=== PATIENT | female | born 1955 | race Caucasian/White ===

== ENCOUNTER 2017-06-11 06:46 | Inpatient (IN) ==
[~2017-06-11 06:46] MED LIST: ACETAMINOPHEN 500 MG TABLET PO ONE; DEXAMETHASONE 4 MG/ML INJECTION IVP ONE; FAMOTIDINE PB 20 MG/50 ML BAG IV ONE; LIDOCAINE 1% (10mg/ml) 2mL INJ PF SDV ID ONE; MELOXICAM 15 MG TABLET PO ONE; METOCLOPRAMIDE 10mg/2ml INJECTION IVP ONE; ONDANSETRON 4 MG/2 ML INJECTION IVP ONE; TRANEXAMIC ACID 1,000 MG in NS 100 ML IV ONE
[2017-06-11 07:00] VITALS: BMI 32.5
[2017-06-11] MEDS ORDERED: TRANEXAMIC ACID 1,000 MG in NS 100 ML IV ONE (07:00)
[2017-06-11] MEDS ORDERED: CEFAZOLIN 1 G INJECTION IVP ONE (07:07)
[2017-06-11] MEDS ORDERED: NOZIN NASAL SWAB NAS ONE ×2 (07:09→12:12)
--- NOTE | 2017-06-11 07:36 | Anesthesia Preoperative Report ---
Anesthesia Preoperative Record - Date and Time Date: 06/11/17 Preoperative Diagnosis: Lt TKA M17.12 NPO Since Date: 06/10/17 NPO Since Time: 00:00 Allergies/Adverse Reactions: Allergies Allergy/AdvReac Type Severity Reaction Status Date / Time hydromorphone [From Dilaudid] AdvReac Severe Nausea and Verified 06/11/17 07:14 Vomiting - Vital Signs Vital Signs: Temperature 98.0 F 06/11/17 07:00 Pulse Rate 81 06/11/17 07:00 Respiratory Rate 16 06/11/17 07:00 Blood Pressure 125/73 06/11/17 07:00 Pulse Oximetry 94 06/11/17 07:00 Height and Weight: Height 1.78 m Weight 102.8 kg Body Mass Index 32.5 - Medications Inpatient Medications: Current Medications Lactated Ringer's (Lactated Ringers) 1,000 mls @ 50 mls/hr IV .Q20H DAYANA Epinephrine HCl 0.25 mg/Bupivacaine HCl 30 ml/Morphine Sulfate 15 mg/Ketorolac Tromethamine 60 mg/Sodium Chloride 65.25 mls @ 1 mls/hr OPSITE INTRAOP ONE PRN Reason: Protocol Stop: 06/14/17 01:14 Sodium Chloride (Iv Flush) 10 - 80 ml IV PRN PRN PRN Reason: Flushing Home Medications: Home Medications Medication Instructions Recorded Confirmed Type Zyrtec (Cetirizine) 10 mg tablet 10 mg PO DAILY PRN tab 04/09/17 06/11/17 History levothyroxine 175 mcg tablet 175 mcg PO ACB 04/09/17 06/11/17 History lisinopril 20 mg tablet 20 mg PO DAILY 04/09/17 06/11/17 History Multivitamin [One Daily] 1 each PO DAILY 05/08/17 06/11/17 History Menopausal Supplement 1 tab PO DAILY 06/11/17 06/11/17 History Is Patient on Beta Nilda?: No - Medical History Respiratory: Reports: Tuberculosis (Pos TB test, CXR showed encapsulated, no treatment) DENIES: Sleep Apnea Cardiovascular: Reports: Hypertension Renal/Endocrine: Reports: Thyroid Disease Other History: Reports: Anesthesia Reactions (n/v) - Surgical History GI Surgery/Treatments: Reports: Cholecystectomy Musculoskeletal Surgery/Tx: Reports: Knee Arthroscopy Reproductive Surgery/Treatment: Reports: Hysterectomy, Other (Breast biopsy) Anesthesia Reactions: Nausea and Vomiting Hx Family Anesthesia Reaction: No History of Motion Sickness: No - Social History Smoking Status: Never smoker Hx Chewing Tobacco Use: No Second Hand Exposure: No Substance Use Type: does not use Alcohol Intake Frequency: does not drink - Physical Exam Respiratory Exam: Present: lungs clear Cardiovascular Exam: Present: regular rate and rhythm - Airway Assessment Mallampati Score: II TMD: 3 Fingerbreadths Neck Extension: fair Overall Assessment: no airway concerns - ASA ASA Score: 2 - Plan Anesthesia: General TIVA, General Inhalation Gases, Neuroaxial Peripheral Nerve Block: Saphenous-Left - Discussion Discussion: Discussed risks/options/alternatives of anesthesia and questions answered. Patient consents. Nursing pain assessment noted. Attestation Statement: Prior to the delivery of any anesthetic medication, I examined the patient, developed the plan, obtained the patient's consent and discussed the risk and benefits of the procedure with the patient/guardian. - Additional Information Seen by Anesthesia: Yes
[2017-06-11] MEDS: LR 1,000 ML IV SCH ×3 (07:40→10:20)
[2017-06-11] MEDS ORDERED: SCOPOLAMINE 1.5mg (delivers 1mg/24hrs) PATCH TD ONE (07:49)
[2017-06-11] MEDS ORDERED: FentaNYL 100 MCG/2 ML INJECTION ONE (07:50)
[2017-06-11] MEDS ORDERED: PROPOFOL 500 MG/50 ML VIAL IV ONE (07:50)
[2017-06-11] MEDS ORDERED: MIDAZOLAM 2mg/2ml INJECTION ONE (07:50)
[2017-06-11] MEDS ORDERED: EPINEPHrine PF 0.25 MG, BUPIVACAINE 0.25% PF 30 ML, MORPHINE SULFATE 15 MG, KETOROLAC I... OPSITE ONE (08:00)
[2017-06-11] MEDS ORDERED: VANCOMYCIN 1,000 MG INJECTION ONE (08:32)
[2017-06-11] MEDS ORDERED: SALINE FLUSH 10ml SYRINGE ONE (09:25)
[2017-06-11] MEDS ORDERED: PHENYLEPHRINE INJ 10 MG/ML VIAL IV ONE (09:25)
[2017-06-11] MEDS ORDERED: VANCOMYCIN 1,000 MG INJECTION IAR ONE (09:45)
[2017-06-11] MEDS ORDERED: ROPIVACAINE 0.5% (5mg/ml) 30ml INJ ONE (10:23)
--- NOTE | 2017-06-11 10:25 | Operative Note ---
- Procedure Preoperative Diagnosis: Left knee primary degenerative joint disease Postoperative Diagnosis: Same as preoperative diagnosis. Surgeon: Renu Cervantes MD Rail Car Repairman: Christopher Pappas Complications: None. Anesthesia: Spinal. Estimated Blood Loss: See Anesthesia Record. Fluids: Please see Anesthesia Record. Description of Procedure: Mrs. Leslie and her left knee were identified and marked in the preoperative holding area. She was brought back to the operating suite after a saphenous nerve block was placed in the preoperative holding area. Spinal anesthetic was administered and she was placed supine on the operating table. The left lower extremity was prepped and draped in my normal sterile fashion. Timeout was performed. The REMOTV robot was used during the surgery. She was fixed varus deformity with a flexion contracture. A standard anterior midline incision followed by medial parapatellar arthrotomy was performed. She complete loss in the medial compartment. Anterior fat pad and meniscus were removed. The patella was resurfaced to a size 32. Tibial and femoral arrays were placed both within the original incision. Checkpoints were then placed both in the femur and the tibia. The bone was then registered with the REMOTV robot. Osteophytes were removed and gaps were captured both 90 and 0 with correction. I performed a larger medial release removing them osteophytes as well but her deformity is still was not correctable. We're able to get her back to about 60 of varus in both flexion and extension and she had about 10 flexion contracture. We manipulated the components using the REMOTV software to obtain 18 mm gaps medially and 20 mm Laterally. The REMOTV robotic arm was then used to assist with the bone cuts. Posterior osteophytes and remaining meniscus were removed. Trial components were placed. We used a 5 femur and a 6 tibia with a 9 mm spacer. She tracked well and was well balanced throughout range of motion. The tibia was then stamped the proper rotation. All components were then press- fit into the place. The knee was ranged one more time to ensure good stability, balance and patellar tracking. 1 g of vancomycin powder was then placed into the knee joint. The capsulotomy was then closed with #1 Vicryl. I then left my veterinary assistant to close the subcutaneous tissue with 2-0 Vicryl. Running 4-0 Monocryl will be used in the subcuticular layer. Dermabond will be used on the skin followed by sterile dressing. After drapes are removed patient will be taken to recovery room under the care of anesthesia.
[2017-06-11] MEDS ORDERED: ONDANSETRON 4 MG/2 ML INJECTION IVP PRN ×2 (10:33→12:12)
[2017-06-11] MEDS ORDERED: FentaNYL 100 MCG/2 ML INJECTION IVP PRN (10:33)
--- NOTE | 2017-06-11 11:10 | Anesthesia Procedure Note ---
Peripheral Nerve Blockade - Procedure Physician: Miguel Cervantes MD Date: 06/11/17 Discussion: Discussed risks/options/alternatives of anesthesia and questions answered. Patient consents. Nursing pain assessment noted. Block Start: 11:02 Block Stop: 11:05 Blocked Employed: Adductor Canal, Single Injection Indication: Post-Operative Pain Approach: Left Side Confirmed Position: Supine Patient: Consent, Risks/Benefits Discussed, Informed, Post Block Act. Discussed IV Sedation: No (post op) Initial Vital Signs: Temperature 98.0 F 06/11/17 07:00 Temperature Source Oral 06/11/17 07:00 Pulse Rate 81 06/11/17 07:00 Respiratory Rate 16 06/11/17 07:00 Blood Pressure 125/73 06/11/17 07:00 Blood Pressure Mean 90 06/11/17 07:00 Blood Pressure Position Sitting 06/11/17 07:00 Pulse Oximetry 94 06/11/17 07:00 Oxygen Delivery Method 06/11/17 07:00 Post Vital Signs: Temperature 98.0 F 06/11/17 07:00 Pulse Rate 82 06/11/17 07:20 Respiratory Rate 16 06/11/17 07:00 Blood Pressure 125/73 06/11/17 07:00 Pulse Oximetry 94 06/11/17 07:00 Prep: Chlorhexadine/ETOH, Sterile Technique Ultrasound Used?: Yes - Nerve Simulator Needle Depth: 4 Muscle Response: No Paresthesia/Pain: None - Injectate Ropivacaine (%): 0.5 Ropivacaine (mL): 15 Was Epi 1:200,000 Used?: No Injection: Injection made incrementally with constant monitoring and aspiration every 5 ml
--- NOTE | 2017-06-11 11:38 | XRay Report ---
Indication: postoperative image PROCEDURE: XR knee LT 2V: Encounter: Initial Comparison: April 09, 2017 Findings: Postoperative changes of left total knee replacement are seen. There is expected postoperative subcutaneous gas. No evidence of hardware failure or acute fracture. No retained radiopaque surgical instruments or sponges. Overlying material causing artifact. Impression: New left total knee prosthesis without evidence of immediate complication. .
--- NOTE | 2017-06-11 12:01 | Anesthesia Postoperative Note ---
- Date and Time Date: 06/11/17 Time: 12:00 - Status Patient Participated in Evaluation: Patient Participated in Person Vital Signs: Temperature 97.2 F 06/11/17 11:55 Pulse Rate 65 06/11/17 11:55 Respiratory Rate 12 06/11/17 11:55 Blood Pressure 128/60 06/11/17 11:55 Pulse Oximetry 98 06/11/17 11:55 Respiratory Function: Airway Patent, Regular Respirations Cardiovascular Function: Regular Pulse Mental Status: Alert and Oriented Pain Intensity: 3 Hydration: IV Infusing Complications During Recover: None Apparent Post Anesthesia Care Notes: moves feet without problems - Follow-Up Instructions Instructions: Per Surgeon
[2017-06-11] MEDS ORDERED: DiphenhydrAMINE 25 MG CAPSULE PO PRN (12:12)
[2017-06-11] MEDS ORDERED: DiphenhydrAMINE 50 MG/ML INJECTION IVP PRN (12:12)
[2017-06-11] MEDS ORDERED: LORazepam 1 MG TABLET PO PRN (12:12)
[2017-06-11] MEDS ORDERED: CETIRIZINE 10 MG TABLET PO PRN (12:12)
[2017-06-11] MEDS: NS 1,000 ML IV SCH (12:15)
[2017-06-11] MEDS ORDERED: SALINE FLUSH 10ml SYRINGE IV PRN (13:58)
[2017-06-11] MEDS: ACETAMINOPHEN 325 MG TABLET PO SCH ×3 (14:00→20:54)
[2017-06-11] MEDS: Oxycodone *IR* 5 MG TABLET PO PRN ×2 (14:01→20:07)
[2017-06-11] MEDS: NOZIN NASAL SWAB NAS SCH ×3 (17:02→21:04)
[2017-06-11] MEDS: CEFAZOLIN 2 G in NS 100 ML IV SCH (17:03)
[2017-06-11] MEDS: DEXAMETHASONE 20 MG/5 ML INJECTION IVP SCH (17:54)
[2017-06-11] MEDS: ASPIRIN *EC* 81 MG TABLET PO SCH (20:53)
[2017-06-11] MEDS: DOCUSATE SODIUM 100 MG CAPSULE PO SCH (20:54)
[2017-06-11] MEDS ORDERED: SENNOSIDES 8.6 MG TABLET PO SCH (21:00)
[2017-06-12] MEDS: DEXAMETHASONE 20 MG/5 ML INJECTION IVP SCH (00:50)
[2017-06-12] MEDS: NS 1,000 ML IV SCH (00:52)
[2017-06-12] MEDS: CEFAZOLIN 2 G in NS 100 ML IV SCH (00:56)
[2017-06-12] MEDS: Oxycodone *IR* 5 MG TABLET PO PRN ×5 (01:14→15:03)
[2017-06-12 04:12] VITALS: RESP 18
[2017-06-12] MEDS ORDERED: LEVOTHYROXINE 175 MCG TABLET PO SCH (06:30)
[2017-06-12] MEDS: NOZIN NASAL SWAB NAS SCH (06:33)
--- NOTE | 2017-06-12 08:11 | Orthopedic Progress Note ---
Date: Date: 06/12/17 Time: 808 Subjective/Severity of Illness: Claudia is doing well. Pain levels are low. She has been mobile with good tolerance. Denies SOA, cough or CP. She is on some oxygen by [place]. Dressing has been dry. Hgb 10.5 range. No concerns. Orthopedic Objective PO Vital signs: Temperature 95.5 F L 06/12/17 04:00 Pulse Rate 55 L 06/12/17 04:00 Respiratory Rate 18 06/12/17 04:00 Blood Pressure 123/68 06/12/17 04:00 Pulse Oximetry 96 06/12/17 04:00 Height and Weight: Height 5 ft 10 in Weight 226 lb 10.163 oz Body Mass Index 32.5 - Constitutional General Appearance: Present: alert, cooperative, no acute distress - Respiratory Exam Present: non-labored - Cardiovascular Exam Present: pedal pulses intact - Extremities Exam Extremities: Present: pulses intact. Absent: calf tenderness - Surgical Site Incision: Mepilex dressing intact, no drainage - Integumentary Exam Present: pink, warm, dry - Neurological Exam Present: no deficits - Psychiatric Exam Present: alert, normal affect - Labs Result Diagrams: 06/12/17 03:55 06/12/17 03:55 Abnormal lab results 06/12/17 06/12/17 Range/Units 03:55 03:55 Hgb 10.5 L D (12-16) GM/DL Hct 32.8 L (36-46) % Chloride 110 H (98-107) MEQ/L BUN 18.0 H (7-17) MG/DL Glucose 141 H (65-110) MG/DL Specimen Hemolysis 46 H (0-25) H & H 06/11/17 06/12/17 Range/Units 07:10 03:55 Hgb 11.9 L 10.5 L D (12-16) GM/DL Hct 36.6 32.8 L (36-46) % Orthopedic Assessment and Plan (1) Primary osteoarthritis of left knee Status: Acute Assessment and Plan: Current anti-coagulation protocol for VTE prophylaxis. SCD's. PT/OT services to improve independent function. Discharge Planning per Case Management. - Anticoagulation Therapy Anticoagulation: ASA 81 mg PO BID x6 weeks Hospital Course Summary Disclaimer: The visit summary below is not to be considered part of the above Progress Note.
[2017-06-12] MEDS ORDERED: LISINOPRIL 20 MG TABLET PO SCH (09:00)
[2017-06-12] MEDS ORDERED: POLYETHYL GLYCOL 3350 17gm PACKET PO SCH (09:00)
[2017-06-12] MEDS ORDERED: MELOXICAM 15 MG TABLET PO SCH (09:00)
[2017-06-12] MEDS: ASPIRIN *EC* 81 MG TABLET PO SCH (09:02)
[2017-06-12] MEDS: ACETAMINOPHEN 325 MG TABLET PO SCH (09:02)
[2017-06-12] MEDS: DOCUSATE SODIUM 100 MG CAPSULE PO SCH (09:02)
[2017-06-12] MEDS ORDERED: SENNOSIDES 8.6 MG TABLET PO PRN (10:51)
[2017-06-12 12:33] VITALS: BP 103/65; PULSE 50; TEMP 96.2; O2SAT 97
[2017-06-13] MEDS ORDERED: MELOXICAM 15 MG TABLET PO SCH (08:00)
[2017-06-13] MEDS ORDERED: BISACODYL 10 MG SUPPOSITORY RECTALLY SCH (20:00)
== END 2017-06-12 15:15 | disposition home or self-care (01) | DRG 470 ==
LOC: SRG 06:46
PROVIDERS: ADMIT Orthopaedic Surgery; ATTEND Orthopaedic Surgery